=== PATIENT | male | born 1950 | race Caucasian/White ===

== ENCOUNTER 2019-08-03 09:47 | Emergency (ER) | payer MEDICARE, BC ==
[2019-08-03] MEDS ORDERED: Sodium Chloride 0.9% 1,000 ML IV SCH (10:00)
[2019-08-03 10:42] LABS: BLOOD UREA NITROGEN,BUN 22 mg/dL (7.0-18.0); CARBON DIOXIDE,CO2 27.8 mmol/L (21.0-32.0); CHLORIDE,CL 102 mmol/L (98-107); GLUCOSE RANDOM 116 mg/dL (74-106); POTASSIUM,K 2.6 mmol/L (3.5-5.1); SODIUM,NA 141 mmol/L (136-148)
--- NOTE | 2019-08-03 11:05 | CR ---
Pain shortness breath. Portable chest. No comparison studies are available Findings: Normal cardiac mediastinal silhouette. No acute airspace or interstitial process. No effusion or pneumothorax. Right paramediastinal opacity may be due to ectatic vasculature however comparison with remote chest radiographs to establish stability would be recommended. Dictated by Liza Fonseca MD @ Aug 03 2019 11:01AM Signed by Dr. Liza Fonseca @ Aug 03 2019 11:03AM
--- NOTE | 2019-08-03 11:09 | CT ---
INDICATION: Altered mental status TECHNIQUE: CT head without contrast. COMPARISON: None. FINDINGS: CSF spaces: Within normal limits for age. Brain parenchyma and extra-axial spaces: The johnston-white differentiation is normal. No sign of mass, hemorrhage, or midline shift. No extra-axial fluid collection. Skull base and calvarium: The visualized paranasal sinuses and mastoid air cells demonstrate no acute or significant findings. The visualized orbits are grossly unremarkable. No skull fractures. IMPRESSION: Unremarkable noncontrast head CT. Please note that all CT scans at this facility use dose modulation, iterative reconstruction, and/or weight-based dosing when appropriate to reduce radiation dose to as low as reasonably achievable. Dictated by Mauricio Nieves MD @ Aug 03 2019 11:05AM Signed by Dr. Mauricio Nieves @ Aug 03 2019 11:08AM
[2019-08-03] MEDS ORDERED: Potassium Chloride 20 MEQ Tab.ER PO ONE (11:37)
--- NOTE | 2019-08-03 12:00 | EDM.PDOC ---
ED HPI GENERAL MEDICAL PROBLEM - General Chief Complaint: General Stated Complaint: CONFUSSION Time Seen by Provider: 08/03/19 11:55 Source of Information: Reports: Patient, Family - History of Present Illness INITIAL COMMENTS - FREE TEXT/NARRATIVE: HISTORY AND PHYSICAL: History of present illness: []Patient presents with history of confusion, states that it was more pronounced last night With the holidays he does admit to having 1 glass of wine with dinner,whether or not he embibed in more, would be in question. She states that he has a history of early dementia followed by neurology Shreyas over the last 2 years, she lists that last night to had some confusion and had put some socks on stating he would be going to work although the patient has not worked an 8+ years, he also tried to enter the bathroom while she was in the bathroom which would be unusual His alert interactive at this time will obvious deficits No fever nausea vomiting chills sweats no chest pain shortness breath headache dizziness or palpitation no bowel or urine symptoms Review of systems: As per history of present illness and below otherwise all systems reviewed and negative. Past medical history: As per history of present illness and as reviewed below otherwise noncontributory. Surgical history: As per history of present illness and as reviewed below otherwise noncontributory. Social history: No reported history of drug or alcohol abuse. Family history: As per history of present illness and as reviewed below otherwise noncontributory. Physical exam: HEENT: Atraumatic, normocephalic, pupils reactive, negative for conjunctival pallor or scleral icterus, mucous membranes moist, throat clear, neck supple, nontender, trachea midline. Lungs: Clear to auscultation, breath sounds equal bilaterally, chest nontender. Heart: S1S2, regular, negative for clicks, rubs, or JVD. Abdomen: Soft, nondistended, nontender. Negative for masses or hepatosplenomegaly. Negative for costovertebral tenderness. Pelvis: Stable nontender. Genitourinary: Deferred. Rectal: Deferred. Extremities: Atraumatic, negative for cords or calf pain. Neurovascular unremarkable. Neuro: Awake, alert, oriented. Cranial nerves II through XII unremarkable. Cerebellum unremarkable. Motor and sensory unremarkable throughout. Exam nonfocal. Diagnostics: [CBC CMP troponin UA EKG Chest [address] Drug screen alcohol screen ] Therapeutics: normal saline Potassium ] Impression: screening exam Hypokalemia, history of hypokalemia History of confusion/early dementia symptoms, all of by neurology Chronic history of baseline ] Definitive disposition and diagnosis as appropriate pending reevaluation and review of above. headache Pain Score (Numeric/FACES): 2 - Related Data Allergies Allergy/AdvReac Type Severity Reaction Status Date / Time steroids Allergy Other Uncoded 08/03/19 10:00 Home Meds: Home Meds Aspirin [Halfprin] 81 mg PO DAILY 08/03/19 [History] Chlorthalidone 25 mg PO QAM 08/03/19 [History] Lisinopril 40 mg PO QAM 08/03/19 [History] Lutein/Minerals/Vit A,C & E [Ocuvite] 1 tab PO BID 08/03/19 [History] Nebivolol [Bystolic] 5 mg PO QAM 08/03/19 [History] Netarsudil Mesylate [Rhopressa] 1 drop EYEBOTH QPM 08/03/19 [History] Potassium Chloride 20 meq PO QAM 08/03/19 [History] Tafluprost/Pf [Zioptan 0.0015% Eye Drops] 1 drop EYEBOTH QPM 08/03/19 [History] Past Medical History HEENT History: Reports: Glaucoma, Macular Degeneration Cardiovascular History: Reports: Hypertension Other Neuro History: dementia - Infectious Disease History Infectious Disease History: Reports: Chicken Pox, Measles - Past Surgical History Male Surgical History: Reports: Vasectomy Social & Family History - Family History Family Medical History: Noncontributory - Tobacco Use Smoking Status *Q: Never Smoker - Recreational Drug Use Recreational Drug Use: No ED ROS GENERAL - Review of Systems Review Of Systems: See Below ED EXAM, GENERAL - Physical Exam Exam: See Below Course - Vital Signs Last Recorded V/S: Last Vital Signs Temp 98.3 F 08/03/19 10:01 Pulse 79 08/03/19 10:01 Resp 16 08/03/19 10:01 BP 171/91 H 08/03/19 10:01 Pulse Ox 96 08/03/19 10:01 - Orders/Labs/Meds Orders: Active Orders 24 hr Category Date Time Status EKG Documentation Completion [RC] STAT Care 08/03/19 10:07 Active Sodium Chloride 0.9% [Normal Saline] 1,000 ml Med 08/03/19 10:00 Active IV STAT Medication Orders Sodium Chloride (Normal Saline) 1,000 mls @ 125 mls/hr IV STAT ISMAEL Last Admin: 08/03/19 10:45 Dose: 125 mls/hr Labs: Laboratory Tests 08/03/19 08/03/19 08/03/19 Range/Units 10:02 10:02 10:02 WBC 9.31 (4.0-11.0) K/uL RBC 4.43 L (4.50-5.90) M/uL Hgb 13.4 (13.0-17.0) g/dL Hct 39.0 (38.0-50.0) % MCV 88.0 (80.0-98.0) fL MCH 30.2 (27.0-32.0) pg MCHC 34.4 (31.0-37.0) g/dL RDW Std Deviation 42.2 (28.0-62.0) fl RDW Coeff of Kayla 13 (11.0-15.0) % Plt Count 209 (150-400) K/uL MPV 9.50 (7.40-12.00) fL Neut % (Auto) 87.0 H (48.0-80.0) % Lymph % (Auto) 6.4 L (16.0-40.0) % [place] % (Auto) 5.8 (0.0-15.0) % Eos % (Auto) 0.5 (0.0-7.0) % Baso % (Auto) 0.3 (0.0-1.5) % Neut # (Auto) 8.1 H (1.4-5.7) K/uL Lymph # (Auto) 0.6 (0.6-2.4) K/uL [place] # (Auto) 0.5 (0.0-0.8) K/uL Eos # (Auto) 0.1 (0.0-0.7) K/uL Baso # (Auto) 0.0 (0.0-0.1) K/uL Nucleated RBC % 0.0 /100WBC Nucleated RBCs # 0 K/uL INR 0.99 Sodium 141 (136-148) mmol/L Potassium 2.6 L (3.5-5.1) mmol/L Chloride 102 (98-107) mmol/L Carbon Dioxide 27.8 (21.0-32.0) mmol/L BUN 22 H (7.0-18.0) mg/dL Creatinine 1.2 (0.8-1.3) mg/dL Est Cr Clr Drug Dosing 67.51 mL/min Estimated GFR (MDRD) > 60.0 ml/min Glucose 116 H (74-106) mg/dL Calcium 8.6 (8.5-10.1) mg/dL Total Bilirubin 1.0 (0.2-1.0) mg/dL AST 22 (15-37) IU/L ALT 21 (14-63) IU/L Alkaline Phosphatase 45 L (46-116) U/L Troponin I < 0.050 (0.000-0.056) ng/mL Total Protein 7.2 (6.4-8.2) g/dL Albumin 3.5 (3.4-5.0) g/dL Globulin 3.7 (2.6-4.0) g/dL Albumin/Globulin Ratio 0.9 (0.9-1.6) TSH 3rd Generation 0.94 (0.36-3.74) uIU/mL Urine Color Urine Appearance Urine pH (5.0-8.0) Ur Specific [place] (1.001-1.035) Urine Protein (NEGATIVE) mg/dL Urine Glucose (UA) (NEGATIVE) mg/dL Urine Ketones (NEGATIVE) mg/dL Urine Occult Blood (NEGATIVE) Urine Nitrite (NEGATIVE) Urine Bilirubin (NEGATIVE) Urine Ictotest Urine Urobilinogen (<2.0) EU/dL Ur Leukocyte Esterase (NEGATIVE) Urine RBC (0-2/HPF) Urine WBC (0-5/HPF) Ur Epithelial Cells (NONE-FEW) Urine Bacteria (NEGATIVE) Urine Mucus (NONE-MOD) Urine Opiates Screen (NEGATIVE) Ur Oxycodone Screen (NEGATIVE) Urine Methadone Screen (NEGATIVE) Ur Barbiturates Screen (NEGATIVE) Ur Phencyclidine Scrn (NEGATIVE) Ur Amphetamine Screen (NEGATIVE) U Methamphetamines Scrn (NEGATIVE) U Benzodiazepines Scrn (NEGATIVE) U Cocaine Metab Screen (NEGATIVE) U Marijuana (THC) Screen (NEGATIVE) Ethyl Alcohol 3 mg/dL 08/03/19 08/03/19 Range/Units 10:49 10:49 WBC (4.0-11.0) K/uL RBC (4.50-5.90) M/uL Hgb (13.0-17.0) g/dL Hct (38.0-50.0) % MCV (80.0-98.0) fL MCH (27.0-32.0) pg MCHC (31.0-37.0) g/dL RDW Std Deviation (28.0-62.0) fl RDW Coeff of Kayla (11.0-15.0) % Plt Count (150-400) K/uL MPV (7.40-12.00) fL Neut % (Auto) (48.0-80.0) % Lymph % (Auto) (16.0-40.0) % [place] % (Auto) (0.0-15.0) % Eos % (Auto) (0.0-7.0) % Baso % (Auto) (0.0-1.5) % Neut # (Auto) (1.4-5.7) K/uL Lymph # (Auto) (0.6-2.4) K/uL [place] # (Auto) (0.0-0.8) K/uL Eos # (Auto) (0.0-0.7) K/uL Baso # (Auto) (0.0-0.1) K/uL Nucleated RBC % /100WBC Nucleated RBCs # K/uL INR Sodium (136-148) mmol/L Potassium (3.5-5.1) mmol/L Chloride (98-107) mmol/L Carbon Dioxide (21.0-32.0) mmol/L BUN (7.0-18.0) mg/dL Creatinine (0.8-1.3) mg/dL Est Cr Clr Drug Dosing mL/min Estimated GFR (MDRD) ml/min Glucose (74-106) mg/dL Calcium (8.5-10.1) mg/dL Total Bilirubin (0.2-1.0) mg/dL AST (15-37) IU/L ALT (14-63) IU/L Alkaline Phosphatase (46-116) U/L Troponin I (0.000-0.056) ng/mL Total Protein (6.4-8.2) g/dL Albumin (3.4-5.0) g/dL Globulin (2.6-4.0) g/dL Albumin/Globulin Ratio (0.9-1.6) TSH 3rd Generation (0.36-3.74) uIU/mL Urine Color ORANGE Urine Appearance CLEAR Urine pH 6.5 (5.0-8.0) Ur Specific [place] 1.020 (1.001-1.035) Urine Protein TRACE H (NEGATIVE) mg/dL Urine Glucose (UA) NEGATIVE (NEGATIVE) mg/dL Urine Ketones NEGATIVE (NEGATIVE) mg/dL Urine Occult Blood NEGATIVE (NEGATIVE) Urine Nitrite NEGATIVE (NEGATIVE) Urine Bilirubin SMALL H (NEGATIVE) Urine Ictotest NEGATIVE Urine Urobilinogen 2.0 H (<2.0) EU/dL Ur Leukocyte Esterase NEGATIVE (NEGATIVE) Urine RBC 2-5 (0-2/HPF) Urine WBC 2-5 (0-5/HPF) Ur Epithelial Cells FEW (NONE-FEW) Urine Bacteria FEW (NEGATIVE) Urine Mucus HEAVY (NONE-MOD) Urine Opiates Screen NEGATIVE (NEGATIVE) Ur Oxycodone Screen NEGATIVE (NEGATIVE) Urine Methadone Screen NEGATIVE (NEGATIVE) Ur Barbiturates Screen NEGATIVE (NEGATIVE) Ur Phencyclidine Scrn NEGATIVE (NEGATIVE) Ur Amphetamine Screen NEGATIVE (NEGATIVE) U Methamphetamines Scrn NEGATIVE (NEGATIVE) U Benzodiazepines Scrn NEGATIVE (NEGATIVE) U Cocaine Metab Screen NEGATIVE (NEGATIVE) U Marijuana (THC) Screen NEGATIVE (NEGATIVE) Ethyl Alcohol mg/dL Meds: Medications Generic Name Dose Route Start Last Admin Trade Name Freq PRN Reason Stop Dose Admin Sodium Chloride 1,000 mls @ 125 mls/hr 08/03/19 10:00 08/03/19 10:45 Normal Saline IV 125 mls/hr STAT ISMAEL Administration Discontinued Medications Generic Name Dose Route Start Last Admin Trade Name Freq PRN Reason Stop Dose Admin Potassium Chloride 20 meq 08/03/19 11:37 08/03/19 11:52 Klor-Con M20 PO 08/03/19 11:38 20 meq ONETIME ONE Administration Departure - Departure Time of Disposition: 11:59 Disposition: Home, Self-Care 01 Condition: Good Clinical Impression: Encounter for medical screening examination, Hypokalemia - Discharge Information Referrals: Dandre Gaines MD [Primary Care Provider] - Additional Instructions: The following information is given to patients seen in the emergency department who are being discharged to home. This information is to outline your options for follow-up care. We provide all patients seen in our emergency department with a follow-up referral. The need for follow-up, as well as the timing and circumstances, are variable depending upon the specifics of your emergency department visit. If you don't have a primary care physician on staff, we will provide you with a referral. We always advise you to contact your personal physician following an emergency department visit to inform them of the circumstance of the visit and for follow-up with them and/or the need for any referrals to a consulting specialist. The emergency department will also refer you to a specialist when appropriate. This referral assures that you have the opportunity for follow-up care with a specialist. All of these measure are taken in an effort to provide you with optimal care, which includes your follow-up. Under all circumstances we always encourage you to contact your private physician who remains a resource for coordinating your care. When calling for follow-up care, please make the office aware that this follow-up is from your recent emergency room visit. If for any reason you are refused follow-up, please contact the [facility] emergency department at and asked to speak to the emergency department charge nurse. - My Orders Last 24 Hours: My Active Orders 08/03/19 10:00 Sodium Chloride 0.9% [Normal Saline] 1,000 ml IV STAT 08/03/19 10:07 EKG Documentation Completion [RC] STAT - Assessment/Plan Last 24 Hours: My Active Orders 08/03/19 10:00 Sodium Chloride 0.9% [Normal Saline] 1,000 ml IV STAT 08/03/19 10:07 EKG Documentation Completion [RC] STAT
== END 2019-08-03 12:14 | disposition home or self-care (01) ==
LOC: MW.ED 09:47
DX: F03.90 Unspecified dementia, unspecified severity, without behavioral disturbance, psychotic disturbance, mood disturbance, and anxiety (principal); E87.6 Hypokalemia; I10 Essential (primary) hypertension; Z88.8 Allergy status to other drugs, medicaments and biological substances; Z79.82 Long term (current) use of aspirin; Z79.899 Other long term (current) drug therapy
CPT/HCPCS: 36415; 70450; 71045; 80053; 80305; 81001; 84443; 84484; 85025; 85610; 87804; 93005; 96360; 99285; A9270; G0480; J7040; 99284

== ENCOUNTER 2021-04-18 22:29 | Emergency (ER) | payer MEDICARE, BC ==
--- NOTE | 2021-04-18 23:14 | EDM.PDOC ---
ED HPI GENERAL MEDICAL PROBLEM - General Chief Complaint: Abdominal Pain Stated Complaint: ABDOMINAL PAIN, FEELS LIKE HE'S GOING TO PASS OUT Time Seen by Provider: 04/18/21 23:11 Source of Information: Reports: Patient History Limitations: Reports: No Limitations - History of Present Illness INITIAL COMMENTS - FREE TEXT/NARRATIVE: Patient is a 70-year-old male with history of dementia presents today for left- sided abdominal pain. Per his he complained of pain on and off for the past week and said that he needs to the hospital was because the pain became too intense. He does not report any denies the pain better or worse has not anything for pain at home. He does have regular bowel movements. Patient said he is still tolerating p.o. with decreased from normal. Upper Abdomen Pain Score (Numeric/FACES): 7 - Related Data Allergies Allergy/AdvReac Type Severity Reaction Status Date / Time steroids Allergy Other Uncoded 04/18/21 22:51 Home Meds: Home Meds Aspirin [Halfprin] 81 mg PO DAILY 08/03/19 [History] Chlorthalidone 25 mg PO QAM 08/03/19 [History] Lutein/Minerals/Vit A,C & E [Ocuvite] 1 tab PO BID 08/03/19 [History] Netarsudil Mesylate [Rhopressa] 1 drop EYEBOTH QPM 08/03/19 [History] Potassium Chloride 20 meq PO QAM 08/03/19 [History] Tafluprost/Pf [Zioptan 0.0015% Eye Drops] 1 drop EYEBOTH QPM 08/03/19 [History] lisinopriL [Lisinopril] 40 mg PO QAM 08/03/19 [History] Metoprolol Succinate 50 mg PO DAILY 04/18/21 [History] Spironolactone [Aldactone] 50 mg PO DAILY 04/18/21 [History] amLODIPine [Norvasc] 1 tab PO DAILY 04/18/21 [History] Past Medical History HEENT History: Reports: Glaucoma, Macular Degeneration Cardiovascular History: Reports: Hypertension Gastrointestinal History: Reports: Chronic Constipation Other Neuro History: dementia - Infectious Disease History Infectious Disease History: Reports: Chicken Pox, Measles - Past Surgical History Male Surgical History: Reports: Vasectomy Social & Family History - Family History Family Medical History: No Pertinent Family History - Tobacco Use Tobacco Use Status *Q: Never Tobacco User - Caffeine Use Caffeine Use: Reports: Coffee - Recreational Drug Use Recreational Drug Use: No ED ROS GENERAL - Review of Systems Review Of Systems: See Below Constitutional: Reports: No Symptoms HEENT: Reports: No Symptoms Respiratory: Reports: No Symptoms Cardiovascular: Reports: No Symptoms Endocrine: Reports: No Symptoms GI/Abdominal: Reports: Abdominal Pain : Reports: No Symptoms Musculoskeletal: Reports: No Symptoms Skin: Reports: No Symptoms Neurological: Reports: No Symptoms Psychiatric: Reports: No Symptoms Hematologic/Lymphatic: Reports: No Symptoms Immunologic: Reports: No Symptoms ED EXAM, GI/ABD - Physical Exam Exam: See Below Exam Limited By: No Limitations General Appearance: Alert, WD/WN, No Apparent Distress Eyes: Bilateral: EOMI Respiratory/Chest: No Respiratory Distress, Lungs Clear, Normal Breath Sounds Cardiovascular: Normal Peripheral Pulses, Regular Rate, Rhythm GI/Abdominal Exam: Normal Bowel Sounds, Soft, Non-Tender Extremities: Normal Inspection, Normal Range of Motion Neurological: Alert, Oriented, Normal Cognition, Normal Gait #1 Interpretation EKG Date: 04/18/21 Time: 23:18 Rhythm: Other (sinus maury) Rate (Beats/Min): 59 ST-T: Normal Course - Vital Signs Last Recorded V/S: Last Vital Signs Temp 96.6 F L 04/18/21 22:55 Pulse 60 04/19/21 03:02 Resp 16 04/19/21 03:02 BP 121/74 04/19/21 03:02 Pulse Ox 95 04/19/21 03:02 - Orders/Labs/Meds Orders: Active Orders 24 hr Category Date Time Status EKG Documentation Completion [RC] STAT Care 04/18/21 23:12 Active Labs: Laboratory Tests 04/18/21 04/18/21 04/19/21 Range/Units 23:00 23:00 00:20 WBC 13.79 H (4.0-11.0) K/uL RBC 4.64 (4.50-5.90) M/uL Hgb 14.4 (13.0-17.0) g/dL Hct 40.6 (38.0-50.0) % MCV 87.5 (80.0-98.0) fL MCH 31.0 (27.0-32.0) pg MCHC 35.5 (31.0-37.0) g/dL RDW Std Deviation 41.3 (28.0-62.0) fl RDW Coeff of Kayla 13 (11.0-15.0) % Plt Count 318 (150-400) K/uL MPV 9.90 (7.40-12.00) fL Neut % (Auto) 85.1 H (48.0-80.0) % Lymph % (Auto) 5.9 L (16.0-40.0) % [place] % (Auto) 8.3 (0.0-15.0) % Eos % (Auto) 0.6 (0.0-7.0) % Baso % (Auto) 0.1 (0.0-1.5) % Neut # (Auto) 11.7 H (1.4-5.7) K/uL Lymph # (Auto) 0.8 (0.6-2.4) K/uL [place] # (Auto) 1.1 H (0.0-0.8) K/uL Eos # (Auto) 0.1 (0.0-0.7) K/uL Baso # (Auto) 0.0 (0.0-0.1) K/uL Nucleated RBC % 0.0 /100WBC Nucleated RBCs # 0 K/uL Sodium 133 L (136-148) mmol/L Potassium 4.5 (3.5-5.1) mmol/L Chloride 96 L (98-107) mmol/L Carbon Dioxide 24.7 (21.0-32.0) mmol/L BUN 18 (7.0-18.0) mg/dL Creatinine 1.2 (0.8-1.3) mg/dL Est Cr Clr Drug Dosing 73.22 mL/min Estimated GFR (MDRD) > 60.0 ml/min Glucose 171 H (74-106) mg/dL Calcium 8.9 (8.5-10.1) mg/dL Phosphorus 3.5 (2.6-4.7) mg/dL Magnesium 2.2 (1.8-2.4) mg/dL Total Bilirubin 3.6 H (0.2-1.0) mg/dL AST 279 H (15-37) IU/L ALT 236 H (14-63) IU/L Alkaline Phosphatase 111 (46-116) U/L Total Protein 7.3 (6.4-8.2) g/dL Albumin 3.7 (3.4-5.0) g/dL Globulin 3.6 (2.6-4.0) g/dL Albumin/Globulin Ratio 1.0 (0.9-1.6) Lipase 7698 H (73-393) U/L SARS-CoV-2 RNA (GIL) NEGATIVE (NEGATIVE) Meds: Medications Discontinued Medications Generic Name Dose Route Start Last Admin Trade Name Freq PRN Reason Stop Dose Admin Piperacillin Sod/Tazobactam 100 mls @ 100 mls/hr 04/19/21 01:15 04/19/21 01:31 Sod 4.5 gm/ Sodium Chloride IV 04/19/21 02:14 100 mls/hr ONETIME ONE Administration Iopamidol 100 ml 04/18/21 23:40 04/19/21 00:46 Iopamidol 755 Mg/Ml 500 Ml Multipack Bottle IVPUSH 04/18/21 23:41 100 ml ONETIME ONE Administration - Re-Assessments/Exams Free Text/Narrative Re-Assessment/Exam: 04/19/21 02:[address] scan shows cholecystitis with possible choledocholithiasis and pancreatitis. Patient will need ERCP. We call [facility] hospitals in [facility] some hospitals no high bed others do not have GI available at the ERCP we did talk to [facility] and they have Dr. Johnson who can do ERCP. Dr. Carlson as accepted the patient. Departure - Departure Time of Disposition: 02:47 Disposition: DC/Tfer to [facility] Hospital 02 Condition: Good Clinical Impression: Cholecystitis, Choledocholithiasis - Discharge Information *PRESCRIPTION DRUG MONITORING PROGRAM REVIEWED*: Not Applicable *COPY OF PRESCRIPTION DRUG MONITORING REPORT IN PATIENT [place]: Not Applicable Referrals: Dandre Gaines MD [Primary Care Provider] - Forms: ED Department Discharge Critical Care Note - Critical Care Note Total Time (mins): 50 Comments: Critical Care Procedure Note Authorized and Performed by: Dr. Gabriel Total critical care time: Approximately Due to a high probability of clinically significant, life threatening deterioration, the patient required my highest level of preparedness to intervene emergently and I personally spent this critical care time directly and personally managing the patient. This critical care time included obtaining a history; examining the patient; pulse oximetry; ordering and review of studies; arranging urgent treatment with development of a management plan; evaluation of patient's response to treatment; frequent reassessment; and, discussions with other providers. This critical care time was performed to assess and manage the high probability of imminent, life-threatening deterioration that could result in multi-organ failure. It was exclusive of separately billable procedures and treating other patients and teaching time. Sepsis Event Note (ED) - Focused Exam Vital Signs: Vital Signs Temp Pulse Resp BP Pulse Ox 04/19/21 03:02 60 16 121/74 95 04/19/21 01:22 63 18 150/78 H 97 04/19/21 00:26 66 16 160/91 H 97 04/18/21 22:55 96.6 F L 53 L 18 117/59 L 94 L - My Orders Last 24 Hours: My Active Orders 04/18/21 23:12 EKG Documentation Completion [RC] STAT - Assessment/Plan Last 24 Hours: My Active Orders 04/18/21 23:12 EKG Documentation Completion [RC] STAT Plan: Patient is a 70-year-old male presents today for abdominal pain. Patient has no abdominal tenderness on exam. Will obtain labs CT scan and reassess.
[2021-04-18 23:29] LABS: BLOOD UREA NITROGEN,BUN 18 mg/dL (7.0-18.0); CARBON DIOXIDE,CO2 24.7 mmol/L (21.0-32.0); CHLORIDE,CL 96 mmol/L (98-107); GLUCOSE RANDOM 171 mg/dL (74-106); POTASSIUM,K 4.5 mmol/L (3.5-5.1); SODIUM,NA 133 mmol/L (136-148)
[2021-04-18 23:38] LABS: LIPASE 7698 U/L (73-393)
[2021-04-18] MEDS ORDERED: Iopamidol 755 MG/ML 500 ML Multipack Bottle IVPUSH ONE (23:40)
--- NOTE | 2021-04-19 01:02 | CT ---
Indication: Diffuse abdominal pain Technique: Contrast enhanced axial CT imaging through the abdomen and pelvis. 100 mL Isovue 370 contrast agent was administered intravenously. Sagittal and coronal reconstructions are provided. Comparison: None Findings: There is marked gallbladder distention with wall thickening and edema, highly concerning for acute cholecystitis. There is also biliary dilatation, with the common bile duct measuring up to 1 cm diameter. No hyperdense biliary stones are demonstrated. The liver is otherwise unremarkable. Mild edema may be present around the pancreatic head. There is otherwise normal enhancement of the pancreatic parenchyma. The pancreatic duct is nondilated. No abnormalities are seen relating to the spleen and adrenal glands. The kidneys are also unremarkable except for a 3 cm cortical cyst in the left upper pole. The portal vein is patent. There is atherosclerosis of the abdominal aorta with infrarenal ectasia up to 2.7 cm. No lymphadenopathy is demonstrated in the abdomen are pelvis. The stomach and duodenum are unremarkable. There is no small bowel wall thickening or abnormal distention. The appendix is noninflamed. There is no clinical thickening or mesenteric edema. Mild diffuse colonic distention with stool suggests constipation. There is a small fat and fluid containing right inguinal hernia, likely of the indirect type. The osseous structures are unremarkable. There is mild bibasilar atelectasis and/or scarring. Impression: 1. Marked gallbladder distention with wall thickening and edema, highly concerning for acute cholecystitis. Further evaluation is recommended with ultrasound. 2. Intrahepatic and extrahepatic biliary dilatation. Choledocholithiasis is a concern. Recommend attention on follow-up. 3. Possible mild edema of the pancreatic head. Correlate with pancreatic enzyme levels for possible pancreatitis. 4. Other incidental findings, as above. Please note that all CT scans at this facility use dose modulation, iterative reconstruction, and/or weight-based dosing when appropriate to reduce radiation dose to as low as reasonably achievable. Dictated by Ivania López MD @ 04/19/2021 1:00:[address] Ivania López @ Apr 19 2021 1:00AM
--- NOTE | 2021-04-19 01:04 | CR ---
INDICATION: Chest pain TECHNIQUE: Portable AP view of the chest COMPARISON: Repeat chest radiograph 08/03/2019 FINDINGS: There is mild left lung base atelectasis. The lungs are otherwise clear. There is no pleural effusion or pneumothorax. The cardiomediastinal silhouette is normal. The visualized osseous structures are unremarkable. IMPRESSION: Mild lung base atelectasis. Otherwise no acute abnormality. Dictated by Ivania López MD @ 04/19/2021 1:02:[address] Ivania López @ Apr 19 2021 1:02AM
[2021-04-19] MEDS ORDERED: Piperacillin/Tazobactam 4.5 GM in Sodium Chloride 0.9% 100 ML IV ONE (01:15)
== END 2021-04-19 04:30 ==
LOC: MW.ED 22:29
DX: K80.40 Calculus of bile duct with cholecystitis, unspecified, without obstruction (principal); I10 Essential (primary) hypertension; Z88.8 Allergy status to other drugs, medicaments and biological substances; Z79.82 Long term (current) use of aspirin; Z79.899 Other long term (current) drug therapy; Z20.822 Contact with and (suspected) exposure to COVID-19
CPT/HCPCS: 36415; 71045; 74177; 80053; 83690; 83735; 84100; 85025; 93005; 96365; 99291; J2543; Q9967; U0002

== ENCOUNTER 2022-09-29 07:29 | Day surgery (SDC) | payer MEDICARE, BC ==
[~2022-09-29 07:29] MED LIST: Acetaminophen 1,000 MG in Premix Bag 1 BAG IV SCH; Lactated Ringers 1,000 ML IV SCH; ceFAZolin 2 GM in Premix Bag 1 BAG IV SCH
[2022-09-29] MEDS ORDERED: Bupivacaine 0.5% 30 ML SDV ONE (07:48)
[2022-09-29] MEDS ORDERED: Ondansetron 4 MG/2 ML SDV IVPUSH PRN (07:50)
[2022-09-29] MEDS ORDERED: fentaNYL 50 MCG/ML SDV IVPUSH PRN (07:50)
[2022-09-29] MEDS ORDERED: HYDROmorphone 1 MG/ML Syringe IVPUSH PRN (07:50)
[2022-09-29] MEDS ORDERED: Dexmedetomidine 200 MCG/2 ML SDV ONE (07:50)
[2022-09-29] MEDS ORDERED: Metoclopramide 10 MG/2 ML SDV IVPUSH PRN (07:50)
[2022-09-29] MEDS ORDERED: Propofol 200 MG/20 ML SDV ONE (07:50)
[2022-09-29] MEDS ORDERED: fentaNYL 100 MCG/2 ML SDV ONE (07:50)
[2022-09-29] MEDS ORDERED: Morphine 2 MG/ML SYRINGE IVPUSH PRN (07:50)
[2022-09-29] MEDS ORDERED: Albuterol 0.083% 2.5 MG/3 ML Neb Soln NEB PRN (07:50)
[2022-09-29] MEDS ORDERED: Naloxone 0.4 MG/ML SDV IVPUSH PRN (07:50)
[2022-09-29] MEDS ORDERED: Water For Injection, Sterile 20 ML ONE ×2 (07:51→09:08)
[2022-09-29] MEDS ORDERED: Ropivacaine 0.5% 5 MG/ML 30 ML SDV ONE (08:02)
[2022-09-29] MEDS ORDERED: Rocuronium 100 MG/10 ML MDV ONE (08:15)
[2022-09-29] MEDS ORDERED: Phenylephrine 1% 10 MG/ML SDV ONE (08:50)
[2022-09-29] MEDS ORDERED: ceFAZolin 2 GM Vial ONE (09:08)
[2022-09-29] MEDS ORDERED: Ketorolac 30 MG/ML SDV ONE (09:49)
[2022-09-29] MEDS ORDERED: Ondansetron 4 MG/2 ML SDV ONE (09:49)
[2022-09-29] MEDS ORDERED: Sugammadex Sodium 200 MG/2 ML VIAL ONE (09:49)
== END 2022-09-29 12:25 | disposition home or self-care (01) ==
LOC: MW.SDS 07:29
PROVIDERS: ATTEND Surgery
DX: K40.90 Unilateral inguinal hernia, without obstruction or gangrene, not specified as recurrent (principal); D17.6 Benign lipomatous neoplasm of spermatic cord; I10 Essential (primary) hypertension; F41.9 Anxiety disorder, unspecified; E53.8 Deficiency of other specified B group vitamins; E87.6 Hypokalemia; E87.1 Hypo-osmolality and hyponatremia; G47.30 Sleep apnea, unspecified; F17.210 Nicotine dependence, cigarettes, uncomplicated; Z79.899 Other long term (current) drug therapy; Z88.8 Allergy status to other drugs, medicaments and biological substances; Z98.890 Other specified postprocedural states
CPT/HCPCS: 49650; C1781; J0131; J0690; J1170; J1885; J2370; J2405; J2704; J2795; J3010; J3490; J7120; 00840; 64488; 99100

== ENCOUNTER 2023-02-19 20:25 | Emergency (ER) | payer MEDICARE, BC ==
[2023-02-19] MEDS ORDERED: Diphtheria,Pertussis(Acell),Tetanus Vaccine 0.5 ML Syringe IM ONE (20:49)
[2023-02-19] MEDS ORDERED: Bacitracin Oint 28.35 GM Tube TOP SCH (22:00)
== END 2023-02-19 23:44 | disposition home or self-care (01) ==
LOC: MW.ED 20:25
DX: S02.2XXA Fracture of nasal bones, initial encounter for closed fracture (principal); S51.001A Unspecified open wound of right elbow, initial encounter; S80.211A Abrasion, right knee, initial encounter; I10 Essential (primary) hypertension; F02.80 Dementia in other diseases classified elsewhere, unspecified severity, without behavioral disturbance, psychotic disturbance, mood disturbance, and anxiety; G20 Parkinson's disease; F17.210 Nicotine dependence, cigarettes, uncomplicated; Z23 Encounter for immunization; Z88.8 Allergy status to other drugs, medicaments and biological substances; Z79.899 Other long term (current) drug therapy; W18.30XA Fall on same level, unspecified, initial encounter; Y93.01 Activity, walking, marching and hiking
CPT/HCPCS: 70450; 70486; 72125; 73070; 73120; 73560; 90471; 90715; 99284; A9270; 99283